=== PATIENT | male | born 1995 | race Caucasian/White ===

== ENCOUNTER 2019-03-09 21:35 | Emergency (ER) | payer SELFPAY ==
[~2019-03-09] VITALS: Ht 172.7 cm; Wt 61.2 kg
[~2019-03-09 21:35] MED LIST: ALBU-136 IH
[2019-03-09 21:50] VITALS: BP 133/72
--- NOTE | 2019-03-09 21:53 | NUR ---
TO LOBBY A/W BED AMBULATORY
--- NOTE | 2019-03-09 22:39 | NUR ---
PT WHEELCHAIRED TO ER BED 12
[2019-03-09 22:44] VITALS: BP 133/72
--- NOTE | 2019-03-09 22:44 | NUR ---
23 Y/O MALE C/O RT ANKLE PAIN, SWELLING, S/P FALL FROM STAIRS, 7 STEPS AT 0300HOURS, NO INJURY TO THE HEAD OR LOC. DENIES N/V/D. A/OX4 AND FOLLOWS COMMANDS. BREATHING UNLABORED AND SYMMETRICAL. CAP REFILL <3 BILATERALLY ON BOTH FEET. +2 PEDAL PULSES BILATERALLY. PER PATIENT, "MY RIGHT FOOT FEELS KIND OF NUMB". SLIGHT ROM ON RIGHT FOOT. ERMD MADE AWARE OF STATUS. SIDE RAILS X1. FRIEND AT BEDSIDE. WILL CONTINUE TO MONITOR. PMH: ASTHMA RX:DENIES NKDA
--- NOTE | 2019-03-09 23:18 | NUR ---
PATIENT IS QUIETLY SITTING IN BED. FRIEND AT BEDSIDE. WILL CONTINUE TO MONITOR.
--- NOTE | 2019-03-09 23:28 | NUR ---
PT LEAVING AT THIS TIME STATES HE IS NOT ABLE TO WAIT, PT REFUSED FOR ME TO REMOVE WRIST BAND.
--- NOTE | 2019-03-09 23:28 | NUR ---
PATIENT LEFT WITHOUT BEING SEEN BY DR. CARABALLO. NO FURTHER CARE PROVIDED FOR PATIENT.
== END 2019-03-09 23:28 | disposition left against medical advice (07) ==
LOC: MED 21:35
DX: M25.471 Effusion, right ankle (principal); R11.10 Vomiting, unspecified; Z53.21 Procedure and treatment not carried out due to patient leaving prior to being seen by health care provider
CPT/HCPCS: 73610; 99281

== ENCOUNTER 2022-05-16 17:21 | Emergency (ER) | payer MEDICAID ==
[~2022-05-16] VITALS: Ht 170.2 cm; Wt 79.4 kg
[~2022-05-16 17:21] MED LIST changes: +ALBU-118 IH; -ALBU-136 IH
--- NOTE | 2022-05-16 17:26 | NUR ---
AMBULATED TO ER BED 7
[2022-05-16] MEDS ORDERED: MORPHINE SULFATE 4 MG/ML SYR IVP ONE ×3 (17:30→21:00)
[2022-05-16 17:36] VITALS: BP 140/85
[2022-05-16] MEDS ORDERED: ONDANSETRON 4 MG/2 ML VIAL IVP ONE (17:40)
--- NOTE | 2022-05-16 18:00 | NUR ---
27 y/o male bib friend for s/p falling off a skateboard and falling on floor. Patient's left elbow noted to be visibly deformed. Denies taking any medication prior to ER arrival. Patient does admit to drinking alcohol prior to incident. Medical History: Denies NKDA
--- NOTE | 2022-05-16 19:20 | NUR ---
Pt report given to JORDYN Simpson. Transfer of care at this time.
--- NOTE | 2022-05-16 19:42 | NUR ---
pt is alert and oriented, complaning about the pain in left elbow. He follows command
--- NOTE | 2022-05-16 19:57 | NUR ---
Dr. Whatley examining patient.
--- NOTE | 2022-05-16 20:00 | NUR ---
pt will be transfred to higher level of care. Pt will kept NPO
--- NOTE | 2022-05-16 20:23 | NUR ---
long posterior arm splint applied. kate wrap x 2. + cms
[2022-05-16 20:32] LABS: BASOPHILS # (AUTO) 0.1 K/uL (0.00-0.22); BASOPHILS % (AUTO) 0.7 % (0.0-2.0); EOSINOPHILS % (AUTO) 0.1 % (0.0-4.0); HEMATOCRIT 43.2 % (36-52); HEMOGLOBIN 14.9 g/dL (12.0-18.0); LYMPHOCYTES % (AUTO) 10.8 % (20.5-51.1); MEAN CORPUSCULAR HEMOGLOBIN 32 pg (27-31); MEAN CORPUSCULAR HGB CONC 35 g/dL (33-37); MEAN CORPUSCULAR VOLUME 91.8 fL (80-94); MONOCYTES # (AUTO) 0.5 K/uL (0.8-1.0); MONOCYTES % (AUTO) 5.8 % (1.7-9.3); NEUTROPHILS # (AUTO) 7.6 K/uL (1.8-7.7); NEUTROPHILS % (AUTO) 82.6 % (42.2-75.2); PLATELET COUNT (AUTO) 265 K/uL (140-450); RED CELL DISTRIBUTION WIDTH 14.2 % (11.6-13.7); WHITE BLOOD COUNT (AUTO) 9.2 K/uL (4.8-10.8)
[2022-05-16 20:59] LABS: ANION GAP 14.5 (8-16); CARBON DIOXIDE 27.8 mmol/L (21-32); CREATININE 0.9 mg/dL (0.6-1.3); POTASSIUM 3.3 mmol/L (3.5-5.1)
[2022-05-16] MEDS ORDERED: MORPHINE SULFATE 4 MG/ML SYR ONE (21:00)
[2022-05-16] MEDS ORDERED: KETOROLAC 15 MG/ML VIAL IVP ONE (23:15)
[2022-05-17] MEDS ORDERED: KETAMINE 10 MG/ML UD SYR **ER IVP ONE (00:50)
[2022-05-17] MEDS ORDERED: NACL 0.9% 1,000 ML IV ONE (00:50)
[2022-05-17] MEDS ORDERED: KETAMINE 500 MG/5 ML VIAL ONE (01:04)
[2022-05-17] MEDS ORDERED: KETAMINE 500 MG/5 ML VIAL IVP ONE (01:10)
--- NOTE | 2022-05-17 01:15 | NUR ---
pt is about to get some concious sedation.
--- NOTE | 2022-05-17 01:15 | NUR ---
pre prepocedure t 98.5 pulse 84 sp02 100 nasal canual 2L, RR 22 BP 143/90
--- NOTE | 2022-05-17 01:20 | NUR ---
did the time out for the patient together with nurse
--- NOTE | 2022-05-17 01:21 | NUR ---
intra vital sign pulse 124 temp 98. degree RR 16 BP 133/77 sp02 98
--- NOTE | 2022-05-17 01:25 | NUR ---
Dr. Ibanez examining patient.
--- NOTE | 2022-05-17 01:27 | NUR ---
post precedure vital sign temp 98.2 pulse 128, pulse 99 rr 17 bp 182/117
--- NOTE | 2022-05-17 01:27 | NUR ---
pt tolerated the procedure. pt denies pain. he is resting
--- NOTE | 2022-05-17 01:40 | NUR ---
vital sign post pulse 123 spo2 100 nasal ccanula 2l RR 15 Bp 158/103
--- NOTE | 2022-05-17 02:08 | NUR ---
Patient vomiting, Dr. Lam notified.
[2022-05-17] MEDS ORDERED: LORazepam 2 MG/ML VIAL IVP ONE (02:10)
[2022-05-17] MEDS ORDERED: ONDANSETRON 4 MG/2 ML VIAL IVP ONE (02:10)
[2022-05-17] MEDS ORDERED: ONDANSETRON 4 MG/2 ML VIAL ONE (02:12)
[2022-05-17] MEDS ORDERED: LORazepam 2 MG/ML VIAL ONE (02:17)
[2022-05-17] MEDS ORDERED: IBUP-2213 PO (05:11)
--- NOTE | 2022-05-17 05:15 | NUR ---
pt is able to walk without difficulty. pt is tolerated well
[2022-05-17 05:37] VITALS: BP 155/88
--- NOTE | 2022-05-17 05:40 | NUR ---
Patient discharged with v/s stable. Written and verbal after care instructions given and explained. Patient verbalized understanding. Ambulatory with steady gait. All questions addressed prior to discharge. Advised to follow up with PMD.pt left with his brother and his belongings
== END 2022-05-17 05:40 | disposition home or self-care (01) ==
LOC: MED 17:21
DX: S52.122A Displaced fracture of head of left radius, initial encounter for closed fracture (principal); Z20.822 Contact with and (suspected) exposure to COVID-19; S52.692A Other fracture of lower end of left ulna, initial encounter for closed fracture; W18.30XA Fall on same level, unspecified, initial encounter; Y93.89 Activity, other specified; Y92.89 Other specified places as the place of occurrence of the external cause; Y99.8 Other external cause status
CPT/HCPCS: 24640; 36415; 73020; 73060; 73070; 73080; 73110; 80048; 85025; 86886; 86900; 86901; 87426; 87635; 96361; 96374; 96375; 96376; 99285; C9803; G0500; J1885; J2060; J2270; J2405; J7030